=== PATIENT | female | born 1995 ===

== ENCOUNTER 2023-07-08 10:21 | Emergency (ER) | payer OTHER, SELFPAY ==
[2023-07-08 11:06] VITALS: BP 163/88; PULSE 79; RESP 20; TEMP 37; O2SAT 100; BMI 24.7
--- NOTE | 2023-07-08 11:15 | ED_ITS ---
HPI - General Adult General Chief complaint: General Medical Stated complaint: Vaginal irritation Time Seen by Provider: 07/08/23 11:29 Source: patient Mode of arrival: ambulatory Limitations: no limitations History of Present Illness HPI narrative: Patient is a 28 year old assigned female at with no reported medical history presenting to the emergency department today with vaginal itchiness, white vaginal discharge, and concern for . Patient states that she hasn't had a period since April of 2023 and is now having vaginal itchiness and white vaginal discharge. Patient denies any dizziness, lightheadedness, abdominal pain, nausea, vomiting, fever, chills, blurry vision, double vision, loss of vision, chest pain, difficulty breathing, shortness of breath, back pain, night sweats, pain with urination, increased urinary frequency, increased urinary urgency, blood in her urine or stool, syncope or a near syncopal episode, recent trauma or falls, bowel incontinence, bladder incontinence, bowel retention, bladder retention, or any other complaints at this time. Relieving factors: none Exacerbating factors: none Associated symptoms: denies other symptoms Treatments prior to arrival: none Related Data Previous Rx's Medication Instructions Recorded clotrimazole 1 % vaginal cream 1 appful vaginal BEDTIME 7 days 07/08/23 #45 grams Allergies Allergy/AdvReac Type Severity Reaction Status Date / Time No Known Allergies Allergy Verified 07/08/23 11:08 Review of Systems Constitutional: Constitutional: Reports no additional constitutional complaints, Denies chills, Denies fever(s) and Denies night sweats Eyes: Eyes: Reports no additional eye complaints, Denies blurry vision, Denies change in vision, Denies diplopia, Denies eye discharge, Denies loss of vision and Denies eye pain ENT: Denies dizziness Cardiovascular: Cardiovascular: Reports no additional cardiovascular complaints, Denies chest pain, Denies lightheadedness, Denies Loss of Consciou sness and Denies dyspnea Respiratory: Respiratory: Reports no additional respiratory complaints and Denies dyspnea Gastrointestinal: Gastrointestinal: Reports no additional gastrointestinal complaints, Denies abdominal pain, Denies melena, Denies hematochezia, Denies change in bowel habits and Denies change in stool character Genitourinary: Genitourinary: Denies hematuria, Denies urinary frequency, Denies dysuria, Denies urinary incontinence, Denies urinary hesitancy and Denies urinary urgency Comments: vaginal itchiness, vaginal discharge Musculoskeletal: Musculoskeletal: Reports no additional musculoskeletal complaints, Denies numbness and Denies tingling Neurologic: Denies dizziness, Denies loss of vision, Denies numbness and Denies tingling Psychiatric: Psychiatric: Reports no additional psychiatric complaints Endocrine: Endocrine: Reports no additional endocrine complaints Hematologic/Lymphatic: Hematologic/Lymphatic: Reports no additional hematologic/lymphatic complaints Allergic/Immunologic: Allergic/Immunologic: Reports no additional allergic/immunologic complaints PMFSH Past Medical History Attestation statement: The following information was validated with the patient. Source: old records reviewed and nursing notes reviewed Social History Social History Advance Directives: No Advance Directives Information Provided: No Physical Exam ED Vital Signs: Vital Signs - 24 hr 07/08/23 11:06 07/08/23 12:01 Temperature 98.6 F 97.9 F Pulse Rate 79 85 Respiratory Rate 20 16 Blood Pressure 163/88 H 128/75 Pulse Oximetry 100 97 Oxygen Delivery Method Room Air Room Air BMI result Body Mass Index 24.7 Const General: cooperative, no acute distress, alert and awake Nutritional Appearance: well nourished Orientation/consciousness: patient oriented x3 Limitations: no limitations HENMT Head: Yes normal to inspection and Yes atraumatic Ears: hearing grossly normal bilaterally and external ears normal General nose exam: Normal external nose present, no nasal discharge noted and no epistaxis Face and sinus: Yes normal facial exam, No abrasion and No laceration Mouth: Normal oral and palatal mucosa present, no drooling and no muffled voice Eyes General: appearance normal, both eyes and all related structures Periorbital: periorbital findings normal Eyelids: Yes eyelids normal Conjunctivae: conjunctivae normal Pupils: Equal, round and reactive pupils present EOM: EOMs intact bilaterally Neck Neck: Yes normal visual inspection, Yes full ROM and Yes no lymphadenopathy Chest Chest palpation & inspection: normal inspection of the chest Resp Effort & Inspection: normal respiratory effort and able to speak in complete sentences GI Inspection: Yes normal to inspection General: Yes deferred Neuro General: patient oriented x3 and moves all extremities Cranial nerves: Yes Equal, round and reactive pupils present Cognition (Neuro): normal cognition Motor exam (neuro): 5/5 motor strength present throughout Sensory Exam: Normal double simultaneous stimulation for sensation Coordination: [id number] test normal Extrem General: Yes normal to inspection, Yes full ROM and Yes capillary refill normal Psych Appearance: grossly normal Mental Status: mental status grossly normal Affect: normal affect Attitude: cooperative Thought process: Normal thought process present Thought content: Normal thought content present Insight: Good insight present (Psych) Course Course Course Narrative: This is an RME: Additional HPI, ROS, PE not included below will be deferred to primary provider. This is a 28-year-old female presenting to the emergency department as she believes she may be . She states that she has not a period since april. She also endorses white vaginal discharge, itching, and fishy odor. She is sexually active, would like to be tested for sexually transmitted infections. No fevers or chills. Plan: UA, U preg Medications Administered Discontinued Medications Generic Name Dose Route Start Last Admin Trade Name Freq PRN Reason Stop Dose Admin Ceftriaxone Sodium 500 mg/ 0 mg 07/08/23 11:53 07/08/23 12:00 Lidocaine HCl 1 ml IM 07/08/23 11:54 1 kit ONCE ONE Administration Medical Decision Making Medical Decision Making [facility] Narrative: Patient is a 28 year old assigned female at with no reported medical history presenting to the emergency department today with concern for , vaginal itchiness, and white vaginal discharge. Patient's physical exam was unremarkable. Patient declined a pelvic exam. Patient's urine showed no acute process. Patient's urine test was positive. Patient's gonorrhea and chlamydia tests are pending. Given the patient's clinical presentation, will treat for vaginal yeast and will give prophylactic 500mg of IM Ceftriaxone. I explained my physical exam findings as well as all test results to the patient. I answered all questions asked by the patient. I stressed the importance of the patient taking her medication as prescribed. I stressed the importance of the patient following up with her primary care provider and her OBGYN. Patient expressed some concern over being uninsured. I provided the patient a pharmacy coupon code as well as the financial counselor information. I stressed the importance of the patient returning to the emergency department immediately if her symptoms were to worsen or if she were to develop any dizziness, shortness of breath, difficulty breathing, chest pain, blurry vision, loss of vision, nausea, vomiting, abdominal pain, fever, chills, back pain, or any other complaints. Patient verbalized agreement and understanding with this treatment plan and discharge. Differential Diagnosis Differential Diagnoses: The differential diagnosis associated with the presentation includes Vaginal yeast infection Admission/Observation Consideration of admission/observation: Escalation of care including admission/observation considered Patient would have been admitted to the hospital had her work up had any findings where hospital admission was appropriate and her clinical presentation warranted hospital admission. Lab Data [facility] Lab Attestation statement: I reviewed the patient's lab results. My interpretation of these results are in the [facility] Rationale portion of this note. Labs: Lab Results 07/08/23 Range/Units 11:17 Urine Color Yellow Urine Appearance Clear Urine pH 6.0 (5.0-9.0) Ur Specific [place] 1.020 (1.005-1.025) Urine Protein Negative (Neg-Trace) mg/dL Urine Glucose (UA) Negative (Negative) mg/dL Urine Ketones Negative (Negative) mg/dL Urine Blood Negative (Negative) Urine Nitrite Negative (Negative) Ur Leukocyte Esterase Negative (Negative) Urine RBC 0-2 (0-2) /HPF Urine WBC 0-5 (0-5) /HPF Ur Squamous Epith Cells 0-2 (0-2) /HPF Urine Bacteria None Seen (None Seen) Hyaline Casts 0-2 (0-2) /LPF Urine Test POSITIVE H (NEGATIVE) Chlam trachomat DNA PCR NOT DETECTED (Not Detect.) N.gonorrhoeae DNA (PCR) NOT DETECTED (Not Detect.) Prescription Management I considered prescription management with: Antibiotic (patient given IM Ceftriaxone in the department) and Other (Patient prescribed an anti-fungal) Discharge Plan Discharge Clinical Impression: , Vaginal yeast infection Patient Disposition: Home, Self-Care Instructions: (ED), Yeast Infection (ED) Additional Instructions: Follow up with your primary care provider and an OBGYN. Return to the emergency department immediately if your symptoms worsen or if you develop any dizziness, shortness of breath, difficulty breathing, chest pain, blurry vision, loss of vision, nausea, vomiting, abdominal pain, fever, chills, back pain, or any other complaints. Prescriptions: New clotrimazole 1 % cream 1 appful vaginal BEDTIME 7 Days Qty: 45 0RF Referrals: [facility] [place] Group] (Call to establish and follow up with a primary care provider. If you already have a primary care provider, please follow up with them.) [facility] [Provider Group] (Call to establish and follow up with a primary care provider. If you already have a primary care provider, please follow up with them.) [facility] [Provider Group] (Call to establish and follow up with a primary care provider. If you already have a primary care provider, please follow up with them.) Don Mary MD [Physician] - (Call to establish and follow up with an OBGYN. ) Stand Alone Forms: Work/School Release Interventions: ED Discharge Assessment Last Done: 07/08/23 12:01 Discharge Date/Time: 07/08/23 12:02 Print Language: Lithuanian
[2023-07-08 11:32] LABS: UPreg QC Valid YES; Urine Pregnancy POSITIVE (NEGATIVE)
[2023-07-08 11:33] LABS: Appearance Urine Clear; Color Urine Yellow; Glucose Urine UA Negative (Negative); Leukocyte Esterase Urine Negative (Negative); Nitrite Urine Negative (Negative); Urine Blood Negative (Negative); Urine Ketones Negative (Negative); Urine Protein Negative (Neg-Trace)
[2023-07-08 11:49] LABS: Bacteria Urine None Seen (None Seen); Hyaline Casts Urine 0-2 /LPF (0-2); RBC Urine 0-2 /HPF (0-2); Squamous Epithelial Cell Urine 0-2 /HPF (0-2); WBC Urine 0-5 /HPF (0-5)
[2023-07-08] MEDS: cefTRIAXone sodium 500 MG, Lidocaine HCl 1 % MPF 1 ML IM (12:00)
[2023-07-08 12:01] VITALS: BP 128/75; PULSE 85; RESP 16; TEMP 36.6; O2SAT 97
[2023-07-08 15:27] LABS: CT PCR NOT DETECTED (Not Detect.); NG PCR NOT DETECTED (Not Detect.)
== END 2023-07-08 12:02 | disposition home or self-care (01) ==
PROVIDERS: Emergency Provider Emergency Medicine
DX: O98.819 Other maternal infectious and parasitic diseases complicating pregnancy, unspecified trimester (principal); B37.31 Acute candidiasis of vulva and vagina; Z3A.00 Weeks of gestation of pregnancy not specified
CPT/HCPCS: 0353U; 81001; 81025; 96372; 99282; 99284; J0696

== ENCOUNTER 2023-09-18 11:50 | Emergency (ER) | payer OTHER, SELFPAY ==
--- NOTE | ~2023-09-18 | US_ITS ---
EXAMINATION: US RETROPERITONEAL LIMITED (RENAL ONLY) CLINICAL INFORMATION: Right flank pain. Question pyelonephritis. COMPARISON: None available. TECHNIQUE: Renal ultrasound. FINDINGS: RIGHT KIDNEY: 11.7 x 5.8 x 6.3 cm (SAG x AP x TRV). The kidney is normal in size, contour, and echogenicity. Renal cortical thickness is normal. No hydronephrosis is identified. No focal parenchymal lesions identified. Within the midpole there is an echogenic focus measuring 3 x 3 x 4 mm in size, consistent with nonobstructing calculus. Within the upper pole there is a 4 x 4 x 3 mm echogenic focus, consistent with nonobstructing calculus. The echogenic foci have ringdown artifact, consistent with calculus. LEFT KIDNEY: 13.7 x 4.2 x 4.6 cm (SAG x AP x TRV). The kidney is normal in size, contour, and echogenicity. Renal cortical thickness is normal. No focal parenchymal lesions identified. No hydronephrosis. Within the lower pole there is a 5 x 4 x 4 mm echogenic focus, consistent with nonobstructing calculus. Within the lower pole there is a 5 x 4 x 5 mm echogenic focus, consistent with nonobstructing calculus. Within the upper pole there is a 4 x 4 x 3 mm echogenic focus, consistent with calculus. The echogenic foci have ringdown artifact, consistent with calculi. US/US renal BI IMPRESSION: Bilateral nephrolithiasis without hydronephrosis..
--- NOTE | ~2023-09-18 | US_ITS ---
EXAMINATION: US , LIMITED CLINICAL INFORMATION: Right flank pain. . LMP unknown. COMPARISON: None available. TECHNIQUE: Transabdominal imaging of the pelvis was performed. FINDINGS: There is a single viable intrauterine . Variable presentation. heart rate measures 144 bpm. The placenta is posterior. US/US OB limited IMPRESSION: Limited study. Single viable intrauterine .
[2023-09-18 11:55] VITALS: BP 139/80; PULSE 86; RESP 18; TEMP 36.3; O2SAT 98; BMI 30.6
--- NOTE | 2023-09-18 11:58 | ED_ITS ---
HPI - General Adult General Chief complaint: General Medical Stated complaint: back pain uti? , 4mo preg Time Seen by Provider: 09/18/23 13:44 Related Data Previous Rx's ?Medication ?Instructions ?Recorded clotrimazole 1 % vaginal cream 1 appful vaginal BEDTIME 7 days 07/08/23 #45 grams Allergies Allergy/AdvReac Type Severity Reaction Status Date / Time No Known Allergies Allergy Verified 09/18/23 11:58 [facility] Social History Social History Advance Directives: No Advance Directives Information Provided: No Do you have a plan to hurt others: No Plan Physical Exam ED Vital Signs: Vital Signs - 24 hr 09/18/23 11:55 Temperature 97.3 F Pulse Rate 86 Respiratory Rate 18 Blood Pressure 139/80 Pulse Oximetry 98 Oxygen Delivery Method Room Air BMI result Body Mass Index 30.6 Course Course Course Narrative: This is a Rapid Medical Examination (RME) performed by Krystal Green PA-C in triage. Full HPI, ROS, assessment and treatment plan per primary provider in the Main ED. 28 yo female, currently 4 months , here for eval of right flank pain and purulent vaginal discharge x2 weeks, worsening. admits to positive test at home. she has not followed up with OBGYN due to insurance issues. has not had conformational ultrasound. cannot recall when her LMP was. denies injury/ trauma. admits to negative STI test in the past. denies fever, chills, vaginal bleeding, vaginal lesions, dysuria, hematuria. well appearing, +ttp over right flank. abd soft, ND/NT. no obvious rashes. Plan: labs, hcg, u preg, UA, ct/ng +/- US per hcg results Reevaluation(s) Reevaluation #1: This is a duplicate note. Please refer to Dr. Kingston's completed note regarding patient's visit. Medical Decision Making Lab Data 09/18/23 12:11 09/18/23 12:11 Labs: Lab Results 09/18/23 09/18/23 Range/Units 12:06 12:11 WBC 9.9 (4.8-10.8) X10*3/uL RBC 4.42 (4.20-5.50) X10*6/uL Hgb 13.2 (12.0-16.0) g/dl Hct 38.3 (37.0-47.0) % MCV 86.7 (80.0-98.0) fL MCH 29.9 (27.0-33.0) pg MCHC 34.5 (31.0-35.0) g/dl RDW 13.2 (11.0-16.0) % Plt Count 226 (160-400) X10*3/uL MPV 8.9 L (9.4-12.3) fL Immature Gran % (Auto) 0.4 (0.0-0.4) % Neut % (Auto) 67.7 (45-73) % Lymph % (Auto) 24.8 (20-40) % [place] % (Auto) 5.4 (2-11) % Eos % (Auto) 1.2 (0-4) % Baso % (Auto) 0.5 (0-2) % Lymph # (Auto) 2.5 (1.2-4.9) X10*3/uL [place] # (Auto) 0.5 (0.1-1.2) X10*3/uL Eos # (Auto) 0.1 (0.0-0.4) X10*3/uL Baso # (Auto) 0.1 (0.0-0.2) X10*3/uL Abs Immat Gran (auto) 0.04 H (0.00-0.03) X10*3/uL Absolute Neuts (auto) 6.7 (2.0-8.3) x10*3/uL Absolute Nucleated RBC 0.000 (0.0-0.012) X10*3/uL Nucleated RBC % (auto) 0.0 (0.0-0.2) /100WBC Sodium 139 (135-145) mmol/L Potassium 3.5 (3.3-5.1) mmol/L Chloride 110 H (96-108) mmol/L Carbon Dioxide 22 (22-29) mmol/L Anion Gap 11 L (12-20) BUN 6 L (9-16) mg/dL Creatinine 0.53 (0.5-1.4) mg/dL Estim Creat Clear Calc 177.7 Estimated GFR > 60 Random Glucose 75 (60-115) mg/dL Calcium 9.5 (8.4-10.2) mg/dL Magnesium 1.6 (1.6-2.6) mg/dL Total Bilirubin 0.2 (0.0-1.0) mg/dL AST 17 (5-31) U/L ALT 12 (0-31) U/L Alkaline Phosphatase 40 (39-117) U/L Total Protein 6.8 (6.5-8.0) g/dL Albumin 3.6 (3.5-5.0) g/dL Lipase 25 (8-78) U/L Beta HCG, Quant 49749 mIU/mL Urine Color Yellow Urine Appearance Clear Urine pH 7.0 (5.0-9.0) Ur Specific [place] 1.010 (1.005-1.025) Urine Protein Negative (Neg-Trace) mg/dL Urine Glucose (UA) Negative (Negative) mg/dL Urine Ketones Negative (Negative) mg/dL Urine Blood Negative (Negative) Urine Nitrite Negative (Negative) Ur Leukocyte Esterase Negative (Negative) Urine Test POSITIVE H (NEGATIVE) Chlam trachomat DNA PCR NOT DETECTED (Not Detect.) N.gonorrhoeae DNA (PCR) NOT DETECTED (Not Detect.) Discharge Plan Discharge Clinical Impression: Pain in right lumbar region of back Patient Disposition: Home, Self-Care Prescriptions: No Action clotrimazole 1 % cream 1 appful vaginal BEDTIME 7 Days Qty: 45 0RF Print Language: Mongolian
[2023-09-18 12:16] LABS: MANUAL DIFF FLAG NO
[2023-09-18 12:18] LABS: Appearance Urine Clear; Color Urine Yellow; Glucose Urine UA Negative (Negative); Leukocyte Esterase Urine Negative (Negative); Nitrite Urine Negative (Negative); Urine Blood Negative (Negative); Urine Ketones Negative (Negative); Urine Protein Negative (Neg-Trace)
[2023-09-18 12:20] LABS: UPreg QC Valid YES; Urine Pregnancy POSITIVE (NEGATIVE)
[2023-09-18 12:20] LABS: Basophils Absolute Auto 0.1 X10*3/uL (0.0-0.2); Basophils Percent Auto 0.5 % (0-2); Eosinophils Absolute Auto 0.1 X10*3/uL (0.0-0.4); Eosinophils Percent Auto 1.2 % (0-4); Hematocrit 38.3 % (37.0-47.0); Hemoglobin 13.2 g/dl (12.0-16.0); Imm Gran Abs Auto 0.04 X10*3/uL (0.00-0.03); Imm Gran Pct Auto 0.4 % (0.0-0.4); Lymphocytes Absolute Auto 2.5 X10*3/uL (1.2-4.9); Lymphocytes Percent Auto 24.8 % (20-40); Mean Corpuscular HGB Conc 34.5 g/dl (31.0-35.0); Mean Corpuscular Hemoglobin 29.9 pg (27.0-33.0); Mean Corpuscular Volume 86.7 fL (80.0-98.0); Mean Platelet Volume 8.9 fL (9.4-12.3); Monocytes Absolute Auto 0.5 X10*3/uL (0.1-1.2); Monocytes Percent Auto 5.4 % (2-11); Neutrophils Absolute Auto 6.7 x10*3/uL (2.0-8.3); Neutrophils Percent Auto 67.7 % (45-73); Platelet Count 226 X10*3/uL (160-400); Red Blood Count 4.42 X10*6/uL (4.20-5.50); Red Cell Distribution Width 13.2 % (11.0-16.0); White Blood Count 9.9 X10*3/uL (4.8-10.8)
[2023-09-18 12:32] LABS: Alanine Aminotransferase 12 U/L (0-31); Albumin Level 3.6 g/dL (3.5-5.0); Alkaline Phosphatase 40 U/L (39-117); Anion Gap 11 (12-20); Aspartate Amino Transferase 17 U/L (5-31); Bilirubin Total 0.2 mg/dL (0.0-1.0); Blood Urea Nitrogen 6 mg/dL (9-16); Calcium 9.5 mg/dL (8.4-10.2); Carbon Dioxide 22 mmol/L (22-29); Chloride 110 mmol/L (96-108); Creatinine Clr Calc Pharmacy 177.7; Estimated Glomerular Filt Rate > 60; Glucose Random 75 mg/dL (60-115); Lipase 25 U/L (8-78); Magnesium 1.6 mg/dL (1.6-2.6); Potassium 3.5 mmol/L (3.3-5.1); Sodium 139 mmol/L (135-145); Total Protein 6.8 g/dL (6.5-8.0)
[2023-09-18 13:54] LABS: CT PCR NOT DETECTED (Not Detect.); NG PCR NOT DETECTED (Not Detect.)
--- NOTE | 2023-09-18 14:03 | ED.GENADULT ---
HPI - General Adult General Chief complaint: General Medical Stated complaint: back pain uti? , 4mo preg Time Seen by Provider: 09/18/23 13:44 History of Present Illness HPI narrative: This is a at about 4 months gestation with no reported pmhx who presents for evaluation of right lower back pain. 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 She states having right-sided lower back pain for 2 weeks. She states no injury, trauma or falls. She states taking Tylenol as needed he has not been taking 2 pills in the morning and 2 pills at night. She states minimal alleviation with this. She reports previously experiencing nausea and vomiting early on in her , but states that she no longer is having nausea or vomiting. She reports eating and drinking well. She states no objective or subjective fevers. She states no chills. She states no dysuria or urinary frequency/urgency. She states that she does not feel like she has a urinary tract infection. She states no abdominal pain. She states no vaginal bleeding. She reports noting some yellow/light green vaginal discharge for the last month. She states no associated vaginal pruritus, skin rash or vaginal lesions. She states no hematuria. She states that she has not had an ultrasound confirming her yet. She states that she has been unable to establish care with OBGYN due to health insurance that will not be activated until October 18. She states that she is taking a daily. She states that she is sexually active and monogamous. She states that she has not concerned for any sexually transmitted infection. She is she was recently checked for sexually transmitted infections and states that she did not have any. She states that she was recently treated for a yeast infection. She reports no similar symptoms to when she was diagnosed with a yeast infection. Related Data Previous Rx's ?Medication ?Instructions ?Recorded clotrimazole 1 % vaginal cream 1 appful vaginal BEDTIME 7 days 07/08/23 #45 grams Allergies Allergy/AdvReac Type Severity Reaction Status Date / Time No Known Allergies Allergy Verified 09/18/23 11:58 Review of Systems Review of Systems: ROS as per [facility] Social History Social History Advance Directives: No Advance Directives Information Provided: No Do you have a plan to hurt others: No Plan Patient : Yes Physical Exam ED Vital Signs: Vital Signs - 24 hr 09/18/23 11:55 09/18/23 14:30 09/18/23 16:06 Temperature 97.3 F 98 F 98.1 F Pulse Rate 86 77 73 Respiratory Rate 18 14 14 Blood Pressure 139/80 114/68 113/65 Pulse Oximetry 98 100 99 Oxygen Delivery Method Room Air Room Air Room Air BMI result Body Mass Index 30.6 Gen: NAD, AOx3 HEENT: NCAT, EOMI, normal conjunctiva CV: RRR Pulm: CTAB, no increased work of breathing GI: Soft, NTND, no rebound, guarding or rigidity : Deferred MSK: No bilateral CVA tenderness Skin: no overlying skin changes to posterior torso or abdomen Neuro: Grossly non focal Medications Administered Discontinued Medications Generic Name Dose Route Start Last Admin Trade Name Freq PRN Reason Stop Dose Admin Acetaminophen 975 mg 09/18/23 14:02 09/18/23 15:40 Acetaminophen 325 Mg Tablet PO 09/18/23 14:03 975 mg ONCE ONE Administration Medical Decision Making Medical Decision Making [facility] Narrative: Differential diagnosis includes, but is not limited to nephrolithiasis, pyelonephritis, labor, lumbar strain. Patient is afebrile and hemodynamically stable on room air. Exam is benign and reassuring. Patient is provided Tylenol for analgesia. I reviewed and interpreted labs, which are noncontributory. Urinalysis is unremarkable and not suggestive of urinary tract infection. Gonorrhea and chlamydia DNA PCR are not detected. I have low clinical suspicion for sexually transmitted infection given history. Discussed patient's care with patient transition specialist OBGYN, Dr. Mary, who recommends transferring patient for evaluation of pre-term labor/[place]. I have low suspicion for labor given history and exam. Pelvic ultrasound demonstrates single viable intrauterine . I reevaluated patient at 1613. She appears comfortable. I discussed her blood work and pelvic ultrasound results with her. I discussed Dr. Mary's recommendation for transfer to [place] following results of her renal ultrasound. Renal ultrasound demonstrates bilateral nephrolithiasis without hydronephrosis. On re-examination at 1750, patient appears comfortable. She is informed of her kidney ultrasound results. Given Dr. Mary's recommendation, I discussed patient's case with OBGYN follow Radha Singh at [facility] and she was subsequently accepted for transfer there for further evaluation given our inability to evaluate for labor. Admission/Observation Consideration of admission/observation: Escalation of care including admission/observation considered Consult Healthcare Provider Management of the patient was discussed with: Machine [employer] Trimmer Discussed patient's care with patient transition specialist OBGYN, Dr. Mary, who recommends transferring patient for evaluation of pre-term labor/[place]. Lab Data [facility]DM Lab Attestation statement: I reviewed the patient's lab results. 09/18/23 12:11 09/18/23 12:11 Labs: Lab Results 09/18/23 09/18/23 Range/Units 12:06 12:11 WBC 9.9 (4.8-10.8) X10*3/uL RBC 4.42 (4.20-5.50) X10*6/uL Hgb 13.2 (12.0-16.0) g/dl Hct 38.3 (37.0-47.0) % MCV 86.7 (80.0-98.0) fL MCH 29.9 (27.0-33.0) pg MCHC 34.5 (31.0-35.0) g/dl RDW 13.2 (11.0-16.0) % Plt Count 226 (160-400) X10*3/uL MPV 8.9 L (9.4-12.3) fL Immature Gran % (Auto) 0.4 (0.0-0.4) % Neut % (Auto) 67.7 (45-73) % Lymph % (Auto) 24.8 (20-40) % [place] % (Auto) 5.4 (2-11) % Eos % (Auto) 1.2 (0-4) % Baso % (Auto) 0.5 (0-2) % Lymph # (Auto) 2.5 (1.2-4.9) X10*3/uL [place] # (Auto) 0.5 (0.1-1.2) X10*3/uL Eos # (Auto) 0.1 (0.0-0.4) X10*3/uL Baso # (Auto) 0.1 (0.0-0.2) X10*3/uL Abs Immat Gran (auto) 0.04 H (0.00-0.03) X10*3/uL Absolute Neuts (auto) 6.7 (2.0-8.3) x10*3/uL Absolute Nucleated RBC 0.000 (0.0-0.012) X10*3/uL Nucleated RBC % (auto) 0.0 (0.0-0.2) /100WBC Sodium 139 (135-145) mmol/L Potassium 3.5 (3.3-5.1) mmol/L Chloride 110 H (96-108) mmol/L Carbon Dioxide 22 (22-29) mmol/L Anion Gap 11 L (12-20) BUN 6 L (9-16) mg/dL Creatinine 0.53 (0.5-1.4) mg/dL Estim Creat Clear Calc 177.7 Estimated GFR > 60 Random Glucose 75 (60-115) mg/dL Calcium 9.5 (8.4-10.2) mg/dL Magnesium 1.6 (1.6-2.6) mg/dL Total Bilirubin 0.2 (0.0-1.0) mg/dL AST 17 (5-31) U/L ALT 12 (0-31) U/L Alkaline Phosphatase 40 (39-117) U/L Total Protein 6.8 (6.5-8.0) g/dL Albumin 3.6 (3.5-5.0) g/dL Lipase 25 (8-78) U/L Beta HCG, Quant 22513 mIU/mL Urine Color Yellow Urine Appearance Clear Urine pH 7.0 (5.0-9.0) Ur Specific [place] 1.010 (1.005-1.025) Urine Protein Negative (Neg-Trace) mg/dL Urine Glucose (UA) Negative (Negative) mg/dL Urine Ketones Negative (Negative) mg/dL Urine Blood Negative (Negative) Urine Nitrite Negative (Negative) Ur Leukocyte Esterase Negative (Negative) Urine Test POSITIVE H (NEGATIVE) Chlam trachomat DNA PCR NOT DETECTED (Not Detect.) N.gonorrhoeae DNA (PCR) NOT DETECTED (Not Detect.) Radiology Impression Discussion of test interpretation with radiology: I have reviewed the radiologist's reading. Radiologist Impression: FINDINGS: There is a single viable intrauterine . Variable presentation. heart rate measures 144 bpm. The placenta is posterior. US/US OB limited IMPRESSION: Limited study. Single viable intrauterine . Dictated By: Em Kathleen MD Signed By: <Electronically signed by Em Kathleen MD in [place]> 09/18/23 1423 US/US renal BI IMPRESSION: Bilateral nephrolithiasis without hydronephrosis.. Dictated By: Vinay Astudillo MD Signed By: <Electronically signed by Vinay Astudillo MD in OV> 09/18/23 1705 Discharge Plan Discharge Clinical Impression: Pain in right lumbar region of back Patient Disposition: [facility] Transfer Details: Transferred to [facility] for OBGYN evaluation Prescriptions: No Action clotrimazole 1 % cream 1 appful vaginal BEDTIME 7 Days Qty: 45 0RF Print Language: Mongolian
[2023-09-18 14:30] VITALS: BP 114/68; PULSE 77; RESP 14; TEMP 36.6; O2SAT 100
--- NOTE | 2023-09-18 15:23 | PM.OBCN ---
OB Consult Note - [facility] Data Service Date: 09/18/23 Primary Care Provider: Unknown Physician Narrative Late entry note 14:19 I was consulted on Brenda Fuller who is a 28 year old at around 24 weeks of gestation with no care presenting to the emergency room complaining of right lower back pain for the last 2 weeks. Has been taking Tylenol with minimal relief, no nausea or vomiting, no fevers or chills, no dysuria or urinary frequency/urgency or hematuria, on vitamin p.o. daily. No vaginal bleeding or leakage of fluid. OB [facility] Social History Social History Advance Directives: No Advance Directives Information Provided: No Do you have a plan to hurt others: No Plan Meds Allergies Allergy/AdvReac Type Severity Reaction Status Date / Time No Known Allergies Allergy Verified 09/18/23 11:58 OB Physical Exam Physical Exam Additional Comments: Physical exam reported by Dr. Kingston as the following: CV: RRR Pulm: CTAB, no increased work of breathing GI: Soft, NTND, no rebound, guarding or rigidity : Deferred MSK: No bilateral CVA tenderness Skin: no overlying skin changes to posterior torso or abdomen Evaluation Baseline FHR:: 144 OB Consult Results Labs 09/18/23 12:11 09/18/23 12:11 Labs: Short CBC 09/18/23 Range/Units 12:11 WBC 9.9 (4.8-10.8) X10*3/uL Hgb 13.2 (12.0-16.0) g/dl Hct 38.3 (37.0-47.0) % Plt Count 226 (160-400) X10*3/uL BMP 09/18/23 12:11 Sodium 139 Potassium 3.5 Chloride 110 H Carbon Dioxide 22 BUN 6 L Creatinine 0.53 Calcium 9.5 Liver Function 09/18/23 Range/Units 12:11 Total Bilirubin 0.2 (0.0-1.0) mg/dL AST 17 (5-31) U/L ALT 12 (0-31) U/L Alkaline Phosphatase 40 (39-117) U/L Albumin 3.6 (3.5-5.0) g/dL Urine 09/18/23 Range/Units 12:06 Urine Color Yellow Urine Appearance Clear Urine pH 7.0 (5.0-9.0) Ur Specific [place] 1.010 (1.005-1.025) Urine Protein Negative (Neg-Trace) mg/dL Urine Glucose (UA) Negative (Negative) mg/dL Urine Test POSITIVE H (NEGATIVE) OB - CN: A/P Assessment and Plan (1) : Status: Inactive Plan 2:[address] Kingston and discussed the case with him; since there is no Ob toco monitor and no maternity nor OB RN's available at [facility], the patient can not be evaluated completely especially to rule out labor, recommended transfer to [facility] in order to prevent any delay in the diagnosis and treatment. The urgency of the transfer was expressed during our discussion. I spent a total of 20 minutes reviewing the chart, communicating to emergency room provider and documenting in the medical record Time Spent With Patient Time: Total time managing care of this patient today ____ minutes.
[2023-09-18] MEDS: Acetaminophen 325 MG TABLET 975 MG PO (15:40)
[2023-09-18 16:06] VITALS: BP 113/65; PULSE 73; RESP 14; TEMP 36.7; O2SAT 99
[2023-09-18 18:00] VITALS: BP 122/76; PULSE 73; RESP 13; TEMP 37; O2SAT 100
--- NOTE | 2023-09-18 18:16 | PC.NURSE ---
patient difficult IV stick, multiple attempts at access, provider aware.
[2023-09-18 19:08] VITALS: BP 122/76; PULSE 73; RESP 13; TEMP 37; O2SAT 100
--- NOTE | 2023-09-18 19:08 | PC.NURSE ---
report given to [facility] Radha Gonzalez
== END 2023-09-18 19:09 | disposition short-term general hospital (02) ==
PROVIDERS: Physician Assistant Medical; Emergency Provider Emergency Medicine
DX: O99.891 Other specified diseases and conditions complicating pregnancy (principal); M54.50 Low back pain, unspecified; Z3A.00 Weeks of gestation of pregnancy not specified
CPT/HCPCS: 0353U; 36415; 76775; 76815; 76816; 80053; 81003; 81025; 83690; 83735; 84702; 85025; 99285